=== PATIENT | male | born 1980 | race Caucasian/White ===

== ENCOUNTER 2018-08-04 22:48 | Emergency (ER) | payer OTHER ==
--- NOTE | 2018-08-04 22:54 | PDOC ---
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 This evening, after lifting a tray he felt mild discomfort in the area of his umbilicus. He denies severe pain/nausea or vomiting. When he examined the area, he noted new swelling in the lower portion of the periumbilical area. Patient states he was not aware of a prior umbilical hernia. No other trauma. Patient had appendectomy in 2001; no known difficulty with wound healing or hernia formation in area of incision. Patient denies smoking/alcohol or other recreational drug use Denies prior significant past medical history except for appendectomy. No known ALLERGIES Past History - Past Medical History Allergies/Adverse Reactions: Allergies Allergy/AdvReac Type Severity Reaction Status Date / Time No Known Allergies Allergy Unverified 08/04/18 22:51 Home Medications: Ambulatory Orders NK [No Known Home Medication] 08/04/18 Review of Systems - Review of Systems Able to Perform ROS?: Yes Comments:: 12 point review of systems is negative except for what is noted in the history of present illness *Physical Exam - Physical Exam Comments: GENERAL: Adult male, alert and oriented 3, no acute distress LUNGS: Breath sounds equal, clear to auscultation bilaterally. No wheezes, and no crackles. HEART:Regular rate and rhythm, normal S1 and S2 without murmur, rub or gallop. ABDOMEN:.normal bowel sounds No guarding,tenderness or rebound.soft, nondistended 3 cm x 2 cm reducible, nontender hernia lower periumbilical area; no other abdominal wall hernia palpated EXTREMITIES: Normal range of motion, no edema. No clubbing or cyanosis. No erythema, or tenderness. NEUROLOGICAL: Cranial nerves II through XII grossly intact. Normal speech. No focal neurological deficits. MUSCULOSKELETAL: Back non-tender to palpation, no CVA tenderness SKIN: Warm, Dry, normal turgor, no rashes or lesions noted. 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 No other complaints. Exam notable for reducible periumbilical hernia in the lower portion of the umbilicus. Exam is otherwise benign. Patient denies previous history of this periumbilical hernia. No evidence of incarcerated hernia at this time. The patient has been advised to avoid heavy lifting until evaluation by a general surgeon. 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 Meanwhile, he can take iwlh-rtx-hvdalof analgesics as needed for discomfort. He was offered acetaminophen now but stated that he had no significant discomfort currently. Referral information for Dr. Earl Herrera provided to the patient. He should call the office as soon as possible (this would be Tuesday, 08/07) to arrange for follow-up evaluation of the periumbilical hernia. Meanwhile, if there is any progression to incarceration, manifested as development of severe pain/nausea/vomiting, the patient should return to the emergency room immediately. The patient has no general medical doctor; it was noted that he has elevated blood pressure tonight on presentation. He was given Dr. Dunn referral information for follow-up for general medical evaluation. *DC/Admit/Observation/Transfer Diagnosis at time of Disposition: Periumbilical hernia - Discharge Dispostion Disposition: HOME Condition at time of disposition: Stable - Referrals Referrals: Earl Herrera MD [Staff Physician] - 3 days Osbaldo Dunn MD [Staff Physician] - 1 week - Patient Instructions Printed Discharge Instructions: Abdominal Hernia Additional Instructions: Avoid lifting anything heavier than 5 pounds until seen by general surgeon Tylenol/Motrin as needed for pain Return to ER if you have severe pain/nausea or vomiting Call Dr. Herrera's office (general surgeon) on Tuesday, 08/07 to arrange for follow-up within 2 days ([phone]) Follow-up with within 1 week for blood pressure check and general medical follow-up Print Language: ARABIC - Post Discharge Activity
[2018-08-04 22:55] VITALS: BP 165/107; PULSE 84; TEMP 99; BMI 32.0
== END 2018-08-04 23:21 | disposition home or self-care (01) ==
LOC: FER 22:48
DX: K42.9 Umbilical hernia without obstruction or gangrene (principal)
CPT/HCPCS: 99282-25

== ENCOUNTER 2018-08-11 05:17 | Day surgery (SDC) | payer OTHER ==
[2018-08-10 14:11] VITALS: BMI 32.0
[2018-08-11] MEDS ORDERED: BUPIVACAINE HCL/PF 0.5% (5MG/ML) 10 ML VIAL ONE (08:11)
--- NOTE | 2018-08-11 08:33 | HP ---
History & Physical Update - History History: No Change - Physical Physical: No Change - Assessment Assessment: No Change - Plan Plan: No Change (Full H&P in paper chart on 08/08/18)
[2018-08-11] MEDS ORDERED: ceFAZolin SODIUM 1 GM VIAL IVPB ONE (08:58)
[2018-08-11] MEDS ORDERED: BUPIVACAINE HCL/PF 0.5% (5MG/ML) 10 ML VIAL IJ ONE (09:15)
--- NOTE | 2018-08-11 09:48 | OP ---
Operative Note - Note: Operative Date: 08/11/18 Pre-Operative Diagnosis: incarcerated umbilical hernia Operation: repair incarcerated umbilical hernia Findings: incarcerated omentum and preperitoneal fat; defect 1.5 cm. Post-Operative Diagnosis: Same as Pre-op Surgeon: Earl Herrera Rivet Passer: Jay Bright Anesthesiologist/HRBP: Yifan Ivory Anesthesia: General Specimens Removed: sac/omentum/fat Estimated Blood Loss (mls): 5
--- NOTE | 2018-08-11 10:02 | SURG ---
Surgery Joy Operator Note Joy Operator: Jay Bright PA-C Date of Service: 08/11/18 Diagnosis: Incarcerated umbilical hernia Procedure: Open umbilical hernia repair I was present for the entirety of the operative procedure. For further detail, please refer to operative report.
[2018-08-11] MEDS ORDERED: ACETAMINOPHEN INJECTION 100 ML IVPB ONE (10:49)
[2018-08-11] MEDS ORDERED: ACETAMINOPHEN 1000 MG/100 ML VIAL (NON FORMULARY) IVPB ONE (11:00)
[2018-08-11 11:04] VITALS: TEMP 97.9
[2018-08-11] MEDS ORDERED: oxyCODONE HCL 5 MG TABLET PO PRN ×2 (12:55)
[2018-08-11] MEDS ORDERED: ONDANSETRON 4 MG/2 ML VIAL IVPUSH PRN (12:55)
[2018-08-11] MEDS ORDERED: LACTATED RINGERS SOLUTION 1,000 ML IV SCH (13:00)
[2018-08-11 19:52] VITALS: BP 129/83; PULSE 74
--- NOTE | 2018-08-14 11:27 | OP ---
DATE OF OPERATION: 08/11/2018 PREOPERATIVE DIAGNOSIS: Incarcerated umbilical hernia. POSTOPERATIVE DIAGNOSIS: Incarcerated umbilical hernia. PROCEDURE: Repair incarcerated umbilical hernia. SURGEON: Earl Herrera MD ROBOTICS ENGINEER: FRANC Segura ANESTHESIA: General. OPERATIVE FINDINGS: There was incarcerated umbilical hernia containing incarcerated omentum and preperitoneal fat. The defect in the abdominal wall was approximately 1.5 cm in greatest dimension, and the rest of the findings were unremarkable. DESCRIPTION OF PROCEDURE: The patient was placed on the operating table in supine position. After induction of general anesthesia, the patient's abdomen was prepped with ChloraPrep and draped in a sterile fashion. A time-out was taken, and an infraumbilical skin incision was made from the 3 o'clock to 9 o'clock position using a scalpel. It was taken down through skin and subcutaneous tissue to the abdominal wall. The umbilical stalk was bluntly encircled and then the umbilicus dissected off the sac, which was entered. Redundant sac and preperitoneal fat and omentum were excised between Susan clamps and the pedicles ligated with 2-0 Vicryl suture. Sac and omentum and fat were sent for pathologic examination. The undersurface of the defect was cleared and then the operative field infiltrated with 1% Xylocaine and 0.5% Marcaine in equal concentrations. Hernia repair was carried out with multiple 0 Ti-Cron horizontal mattress sutures. The wound was copiously irrigated and then hemostasis checked for and noted to be good and the umbilicus tacked down to the abdominal wall with 2-0 Vicryl. The deep dermis was reapproximated with interrupted 3-0 Vicryl and the skin edges with 4-0 Monocryl in a subcuticular continuous fascia. Dermabond, Steri-Strips, and dry sterile dressings were placed and the procedure terminated at this point and the patient aroused from general anesthesia and transferred to the post anesthesia care unit in stable condition awake and alert. ESTIMATED BLOOD LOSS: 5 mL. REPLACEMENT: Crystalloid. DRAINS: None. SPECIMENS: Omentum, fat, and sac to pathology. I, Earl Herrera, was physically present in the operating room from the time the patient was placed on the operating room table until he was transferred to the post anesthesia care unit in [email or web address]. MD DEJA Denton/[id number] MTDD
--- NOTE | 2018-08-17 18:19 | PATH ---
Surgical Pathology Report Patient Name: ADAM PIERRE [facility]. Rec. #: [id number] /Age/Gender: 1980 (Age: 38) / M Account: [id number] Location: [facility] SURGICAL Taken: 08/11/2018 Received: 08/11/2018 Reported: 08/17/2018 Physicians: Earl Herrera MD Specimen(s) Received UMBILICAL HERNIA SAC Clinical History Incarcerated hernia umbilical Final Diagnosis UMBILICAL HERNIA SAC, REPAIR: HERNIA SAC. Electronically Signed Dahiana Whipple M.D. Gross Description Received in formalin labeled "umbilical hernia sac," is a 6.0 x 3.0 x 1.0 cm portion of bradshaw-pink fibromembranous tissue with attached fat, consistent with a hernia sac. Flight Engineer Helicopter sections are submitted in one cassette. /08/11/201808/11/2018
== END 2018-08-11 14:00 | disposition home or self-care (01) ==
LOC: JASU-SURG 05:17
PROVIDERS: ATTEND Surgery
PROC: 0WQF0ZZ Repair Abdominal Wall, Open Approach (ICD-10-PCS; principal; 2018-08-11 09:00)
DX: K42.0 Umbilical hernia with obstruction, without gangrene (principal)
CPT/HCPCS: 88302-TC; 94760; J0131

== ENCOUNTER 2021-01-25 19:44 | Emergency (ER) | payer SELFPAY ==
[2021-01-25 20:12] VITALS: PULSE 72; TEMP 98.8; BMI 31.8
[2021-01-25 20:46] VITALS: BP 152/95
== END 2021-01-25 20:49 | disposition home or self-care (01) ==
LOC: JER 19:44
DX: R10.84 Generalized abdominal pain (principal)
CPT/HCPCS: 99281-25